=== PATIENT | male | born 1965 | race Caucasian/White ===

== ENCOUNTER 2018-04-02 05:35 | Day surgery (SDC) | payer BC ==
[~2018-04-02] VITALS: Ht 170.2 cm; Wt 93.0 kg
--- NOTE | ~2018-04-02 | EKG ---
[address] [address] ELECTROCARDIOGRAM REPORT Name: ANA MARIA HARVEYGREGG Gomez Room #: 150-5 [facility]#: [id number] Admission: 04/02/18 Attend Phys: Dennis Johansen MD Discharge: Date of : 69 Report #: [id number] THIS REPORT FOR: //name// [facility] Test Date: 2018-04-02 Test Time: 11:29:22 Pat Name: MARYANN HARVEY Department: Room: 150 5 Gender: M [employer] Insurance Agent: NATALIE : 1965 Requested By: Dennis Johansen Order Number: [id number] MD: Roge Post Measurements Intervals Crescent Rate: 69 P: 2 VT: 154 QRS: 13 QRSD: 93 T: 39 QT: 418 QTc: 442 Interpretive Statements Sinus rhythm Nonspecific T abnormalities, lateral leads ST elev, probable normal early repol pattern Baseline wander in lead(s) V1 No previous ECG available for comparison Electronically Signed On 04-02-2018 13:24:22 TRANSMISSION TESTER by Roge Post [email or web address] <ELECTRONICALLY SIGNED> By: Roge Post MD 04/02/18 1324 1129 1129 Roge Post MD /EPI
--- NOTE | ~2018-04-02 | H ---
[facility] [place] [address] [place] [address] HISTORY AND PHYSICAL Name: MARYANN HARVEY Room #: 150-5 [facility]..#: [id number] Admission: 04/02/18 Attend Phys: Dennis Johansen MD Discharge: Date of : 69 Report #: [id number] THIS REPORT FOR: //name// CC: Dennis Fleming MD DATE OF SERVICE: 04/02/2018 PREOPERATIVE DIAGNOSIS: Cholecystitis with cholelithiasis. HISTORY OF PRESENT ILLNESS: The patient is a 52-year-old who has been complaining of abdominal bloating and pain for about a year. This did get worse in December. The patient complains after eating spicy or greasy food, the patient developed abdominal pain. This is usually at nighttime. He would go to bed. He would have some vomiting episode and then felt better. He had another episode recently. Pain is located in the epigastric area, sharp in nature, associated with nausea and vomiting. He is complaining of fairly significant bloating symptom, also increased gas. He has had decreased appetite. The patient's bowels are working well. No diarrhea history. No family history of gallbladder disease. The patient did have an ultrasound in December and the gallbladder was abnormal with gallbladder wall thickening, gallstones and probable gallbladder polyps also. He was tender over the gallbladder. On the ultrasound, findings suggest acute cholecystitis. The patient did not come in at that point. I believe he had a relative that he sought advice from and he decided to hold off until the symptoms got worse. The patient's was under the impression that he did not have any gallstones. The ultrasound does confirm presence of gallstones. The patient is here for gallbladder surgery. PAST MEDICAL HISTORY: He has elevated cholesterol. No other illness. No heart disease, lung disease, diabetes. No liver or kidney disease. No bleeding disorder. No history of blood clot. MEDICATIONS: Rosuvastatin 10 mg once a day. ALLERGIES: He is not allergic to anything. PAST SURGICAL HISTORY: No prior surgical history. FAMILY HISTORY: Mother with diabetes. SOCIAL HISTORY: The patient is an data entry technician. Does not smoke. The patient drinks moderately. REVIEW OF SYSTEMS: Headache, blurred vision. No shortness of breath, chest pain. No back problems. No weakness, numbness. [facility] [address] [place] [address] HISTORY AND PHYSICAL Name: MARYANN HARVEY Room #: [address] [place] [address]..#: [id number] Admission: 04/02/18 Attend Phys: Dennis Johansen MD Discharge: Date of : 69 Report #: [id number] PHYSICAL EXAMINATION: GENERAL: The patient is well-nourished male, in no acute distress. HEENT: Pupils react to light. No scleral icterus. NECK: Soft, supple, no masses. LUNGS: Clear to auscultation. HEART: Regular rate and rhythm. No murmur or gallop. ABDOMEN: Soft and nontender. No guarding. No ascites. EXTREMITIES: No cyanosis, clubbing or edema. The patient moves all extremities well. Sensation is intact. IMPRESSION: The patient is a 52-year-old with abdominal pain for about a year. In December, this got worse. He has epigastric pain, bloating, nausea, vomiting. He does have gallstone on ultrasound. The patient is recommended to have his gallbladder removed. In December, his gallbladder actually looked somewhat inflamed, but he decided not have anything done at that point. The patient is now wanting to proceed with gallbladder surgery. The procedure discussed in detail. Risk of bleeding, infection, common bile duct injury was discussed. The patient understands the procedure and wishes to proceed. <ELECTRONICALLY SIGNED> By: Dennis Johansen MD 04/02/18 1455 0904 0926 Dennis Johansen MD /nt
--- NOTE | ~2018-04-02 | O ---
[facility] [place] [address] [place] [address] OPERATIVE REPORT Name: MARYANN HARVEY Room #: DEP [facility]#: [id number] Admission: 04/02/18 Attend Phys: Dennis Johansen MD Discharge: 04/03/18 Date of : 69 Report #: [id number] THIS REPORT FOR: //name// CC: Dennis Fleming MD DATE OF SERVICE: 04/02/2018 PREOPERATIVE DIAGNOSES: Cholecystitis with cholelithiasis. POSTOPERATIVE DIAGNOSES: Chronic cholecystitis with cholelithiasis, severe adhesion surrounding the gallbladder, multiple stones identified. SURGEON: Dennis Johansen M.D. ANESTHESIA: General anesthesia. COMPLICATIONS: None. ESTIMATED BLOOD LOSS: 10 mL. FINDINGS: The gallbladder is covered by dense adhesion. Multiple stones found. Intraoperative cholangiogram is normal looking. DESCRIPTION OF PROCEDURE: With the patient under general anesthesia, IV antibiotic was administered. Timeout was performed. Abdomen was prepped and draped in sterile fashion. A 0.25% Marcaine was used to anesthetize the skin and subcutaneous tissue. This was at the trocar site. A 2 cm infraumbilical incision was made. Fascia was identified. Fascia was then grasped with hemostat. The fascia was opened under visualization. A 0 Vicryl suture placed on the fascia for retraction. With the abdominal wall lifted with the retention suture, a Veress needle was then placed through the peritoneum. Abdominal cavity was insufflated with CO2. After creating pneumoperitoneum pressure of 15, an 11 mm trocar was placed under visualization through the rest of the fascia and peritoneum. This was placed into the pneumoperitoneum, no harm to underlying tissue. Two 5 mm trocars were placed in right upper quadrant, 5 mm trocar right epigastrium. The patient was placed in reverse Trendelenburg position, right side tilted up. The patient had dense adhesions covering the gallbladder. This was a fatty tissues in this area that stuck to the edge of the liver and gallbladder. The adhesion was taken down. I was finally able to see the gallbladder. A grasper was placed on the fundus of the gallbladder. The rest of the adhesions were taken away from the gallbladder. The proximal part of the gallbladder was identified. The peritoneum over the lateral portion of the gallbladder was dissected free. Peritoneum was then free medially. There were moderate adhesions in this area too. The cystic duct was able to be [facility] [address] [place] [address] OPERATIVE REPORT Name: HARVEYWILLMARYANN P Room #: DEP [facility] Marnie.Alf.#: [id number] Admission: 04/02/18 Attend Phys: Dennis Johansen MD Discharge: 04/03/18 Date of : 69 Report #: [id number] isolated using a blunt laparoscopic peanut and also pointed dissector. The cystic artery was identified. This was a fairly small size artery. This was divided between clips x 2 proximally and 1 distally and then divided. This allowed a better view of the cystic duct. Cystic duct was isolated, freed up and then a clip was placed in junction of cystic duct to the gallbladder. Opening was made in the cystic duct. Cholangiogram catheter was placed. I was able to get the catheter tip in, but not very far. A clip was placed to hold it in place. Fluoroscopic cholangiogram was obtained. The cystic duct filled out. Then, the common duct filled out. The common duct was normal and small size and I did not see any filling defect. Catheter was then removed. The proximal cystic duct was then clipped x 2 and then divided. There was a larger cystic artery that was identified more medial posteriorly. This was isolated, clipped x 2 proximally and 1 distally and then divided. Gallbladder was freed rest of the way without difficulty. Gallbladder was placed in a specimen bag. The bag with the gallbladder was retrieved through the infraumbilical port. The fascia was slightly enlarged to get the gallbladder out. Gallbladder was opened off the field. There were multiple stones, blackish stones identified. These varied in size from about a millimeter to a 5-6 mm in size. Specimen sent to pathology. Liver bed was checked, hemostasis obtained. Small piece of Surgicel was also placed. Irrigation was performed. The irrigation was aspirated out. CO2 was evacuated. Trocars removed at that same time the CO2 was evacuated as much as possible. The fascia defect infraumbilically was closed with a [id number] 0 Vicryl x 2 and a single interrupted 0 Vicryl. Skin was irrigated. Skin was closed with 5-0 PDS. Steri-Strip, Band-Aids applied. The patient tolerated procedure well. <ELECTRONICALLY SIGNED> By: Dennis Johansen MD 04/04/18 1114 1503 1751 Dennis Johansen MD /nt
--- NOTE | ~2018-04-02 | PATH ---
[facility] [address] [place] [address] PATHOLOGY RPT PROCEDURE Name: FINESSE HARVEY Room #: DEP [facility] M.R.#: [id number] Admission: 04/02/18 Date of : 69 Discharge: 04/03/18 Report #: [id number] Path Case #: [id number] [facility] Accession Number: [id number] . 01 Material submitted: . GALLBLADDER . 01 Clinical history: . Cholecystitis and cholelithiasis. . 02 Diagnosis: Gallbladder, cholecystectomy: - Mild chronic cholecystitis. - Cholelithiasis. (IUV:hemant; 04/05/2018) QMS/04/05/2018 . 02 Electronically signed: . Zahida Alvarado MD, Pathologist NPI- [id number] . 01 Gross description: . Received in formalin labeled "Finesse Harvey, gallbladder" is a previously opened cholecystectomy specimen measuring 7.1 x 2.8 x 1.4 cm. The serosa is aceves-green and smooth and the mucosa is dark green and velvety without polyps or masses. The average wall thickness is 0.3 cm. Multiple multifaceted black calculi are present in the container measuring in aggregate 1.8 x 1.3 x 0.4 cm and ranging from 0.1-0.4 cm in greatest dimension. [employer] sections of the fundus, body, and the cystic duct margin are submitted in cassette A1. ([facility] 04/03/2018) SYC/SYC . 02 Pathologist provided ICD-10: K80.10 . 02 CPT . 780657 Specimen Comment: A courtesy copy of this report has been sent to Specimen Comment: [phone], . Specimen Comment: Report sent to / DR MATHEWS Specimen Comment: A duplicate report has been generated due to demographic updates. Performed at: [address] [facility] [id number] MD Isacc Wills MD Phone: [phone] Performed at: [address] [address] PATHOLOGY RPT PROCEDURE Name: FINESSE HARVEY Room #: DEP [facility] M.Neha#: [id number] Admission: 04/02/18 Date of : 69 Discharge: 04/03/18 Report #: [id number] Path Case #: [id number] [facility] [address], [place], [place] [id number] MD Zahida Alvarado MD Phone: [phone]
[~2018-04-02 05:35] MED LIST: ALLERGY10 MG PO; CENTRUM SILVER1 EAC4 PO; CRESTOR10 MG PO
[2018-04-02 11:32] VITALS: BP 151/85
[2018-04-02 17:39] VITALS: BP 152/81
[2018-04-02 18:04] VITALS: BP 149/90
[2018-04-02 20:38] VITALS: BP 145/85
[2018-04-03 04:08] VITALS: BP 133/69
[2018-04-03 08:00] VITALS: BP 149/77
[2018-04-03] MEDS ORDERED: HYDROCODONE-AP1 EAC6 PO (12:04)
[2018-04-03 14:34] VITALS: BP 149/77
== END 2018-04-03 16:57 | disposition home or self-care (01) ==
LOC: OR 05:35 → TBA 05:35 → OR 06:58 → 4E 17:05 → OR 04-03 16:57
DX: K80.10 Calculus of gallbladder with chronic cholecystitis without obstruction (principal); E78.00 Pure hypercholesterolemia, unspecified; E78.5 Hyperlipidemia, unspecified; Z98.890 Other specified postprocedural states; Z79.899 Other long term (current) drug therapy; Z79.891 Long term (current) use of opiate analgesic; Z83.3 Family history of diabetes mellitus
CPT/HCPCS: 10783; 50010; 50101; 50411; 50555; 50558; 51489; 51687; 53307; 53310; 53312; 55245; 55317; 56462; 56525; 56526; 56638; 62110; 62900; 70005